=== PATIENT | male | born 1995 | race African-American/Black ===

== ENCOUNTER 2024-10-07 20:11 | Emergency (ER) | payer SELFPAY ==
[2024-10-07] MEDS ORDERED: IBUPROFEN 400 MG TAB ONE (20:51)
[2024-10-07] MEDS ORDERED: ACETAMINOPHEN 500 MG TAB ONE (20:51)
[2024-10-07] MEDS ORDERED: NA CHLORIDE 0.9% 2,000 ML ONE (20:51)
[2024-10-07 21:01] LABS: SARS-CoV-2 Antigen CONTROL BLUE LINE VIS/BG OK; SARS-CoV-2 Antigen Rapid Res Negative (Negative)
[2024-10-07 21:06] LABS: Absolute Lymphocytes (CBC) 0.6 K/uL (0.7-4.9); Absolute Monocytes 0.8 K/uL (0.1-1.3); Absolute Neutrophil 3.6 K/uL (1.8-8.0); Basophils % 0.8 % (0-1.3); Eosinophils % 0.5 % (0-4.4); Hematocrit 43.2 % (36.0-45.0); Hemoglobin 13.8 g/dL (12.0-15.0); Lymphocytes % 11.4 % (15.3-44.8); MCH 22.4 pg (27.0-35.0); MCHC 32.1 g/dL (32.0-36.0); MCV 69.9 fL (80-100); MPV 8.4 fL (7.6-11.3); Monocytes % 15.8 % (3.3-12.3); Neutrophils % 71.5 % (41.7-73.7); Nucleated Red Blood Cells % 0.2 % (0-0); Platelets 197 thou/uL (152-406); RBC Red Blood Cell Count 6.18 M/uL (4.33-5.43)
[2024-10-07 21:26] LABS: Albumin 3.8 g/dL (3.4-5.0); Albumin/Globulin Ratio 0.7 (1.1-1.8); Anion Gap 10.7 mEq/L (5.0-15.0); Globulin 5.3 g/dL (2.3-3.5); Potassium 3.7 mEq/L (3.5-5.1); Protein, Total 9.1 g/dL (6.4-8.2)
[2024-10-07 21:47] LABS: Blood Morphology Comment NOT SEEN (NOT SEEN); White Blood Cell Scan OK (OK)
[2024-10-07 21:56] LABS: Platelet Estimate ADEQ
--- NOTE | 2024-10-07 22:04 | ER ---
Nurse's Notes [facility] Name: John Zuñiga Age: 29 yrs Sex: Male : 1995 Arrival Date: 10/07/2024 Time: 20:11 Bed 14 Private MD: Diagnosis: Influenza A , Acute Febrile Illness, Elevated Liver Enzymes Presentation: 10/07 20:25 Chief complaint: Patient states: cough, congestion, fever, sore throat X1 day. lg3 Coronavirus screen: Client denies travel out of the [place] in the last 14 days. Client presents with at least one sign or symptom that may indicate coronavirus-19. Standard/surgical mask placed on the client. Ebola Screen: No symptoms or risks identified at this time. Initial Sepsis Screen: Does the patient meet any 2 criteria? Temp <36.0*C (96.8*F)) or > 38.3*C (100.9*F). HR > 90 bpm. Yes Does the patient have a suspected source of infection? No. Patient's initial sepsis screen is negative. Risk Assessment: Do you want to hurt yourself or someone else? Patient reports no desire to harm self or others. Onset of symptoms was October 06, 2024. 20:25 Method Of Arrival: Ambulatory lg3 20:25 Acuity: BHARAT 3 lg3 Triage Assessment: 20:26 General: Appears in no apparent distress. comfortable, Behavior is calm, cooperative. lg3 Pain: Complains of pain in head, throat. EENT: No deficits noted. Reports difficulty swallowing nasal congestion nasal discharge. Neuro: No deficits noted. Quevedo Agitation-Sedation Scale (RASS): 0 - Alert and Calm Level of Consciousness is awake, alert, obeys commands, Oriented to person, place, time, situation. Cardiovascular: No deficits noted. Denies chest pain, shortness of breath, Capillary refill < 3 seconds Clubbing of nail beds is absent JVD is absent Patient's skin is warm and dry. Respiratory: Reports cough that is Airway is patent Respiratory effort is even, unlabored, Respiratory pattern is regular, symmetrical, Breath sounds are clear bilaterally. GI: No deficits noted. No signs and/or symptoms were reported involving the gastrointestinal system. : No signs and/or symptoms were reported regarding the genitourinary system. Derm: No deficits noted. No signs and/or symptoms reported regarding the dermatologic system. Skin is intact, is healthy with good turgor, Skin is dry, Skin is normal, Skin temperature is warm. Musculoskeletal: No deficits noted. No signs and/or symptoms reported regarding the musculoskeletal system. Circulation, motion, and sensation intact. Range of motion: intact in all extremities. Historical: - Allergies: 20:26 No Known Allergies; lg3 - Home Meds: 20:26 None [Active]; lg3 - PMHx: 20:26 None; lg3 - PSHx: 20:26 None; lg3 - Immunization history:: Adult Immunizations up to date. - Infectious Disease History:: Denies. - Social history:: Smoking status: Patient denies any tobacco usage or history of. Patient/guardian denies using alcohol, street drugs. - Family history:: not pertinent. Screenin:28 [facility] ED Fall Risk Assessment (Adult) History of falling in the last 3 months, lg3 including since admission No falls in past 3 months (0 pts) Confusion or Disorientation No (0 pts) Intoxicated or Sedated No (0 pts) Impaired Gait No (0 pts) Mobility Assist Device Used No (0 pt) Altered Elimination No (0 pt) Score/Fall Risk Level 0 - 2 = Low Risk Oriented to surroundings, Maintained a safe environment, Educated pt \T\ family on fall prevention, incl call for assistance when getting out of bed, Assessed \T\ reinforced patient's understanding of fall precautions. Abuse screen: Denies threats or abuse. Denies injuries from another. Nutritional screening: No deficits noted. Tuberculosis screening: No symptoms or risk factors identified. Assessment: 20:28 General: see triage assessment. Cardiovascular: No deficits noted. Denies chest pain, lg3 shortness of breath, Heart tones S1 S2 present Capillary refill < 3 seconds Clubbing of nail beds is absent JVD is absent Patient's skin is warm and dry. Respiratory: Reports cough that is Airway is patent Respiratory effort is even, unlabored, Respiratory pattern is regular, symmetrical, Breath sounds are clear bilaterally. 22:17 Reassessment: Patient appears in no apparent distress at this time. Patient and/or jb4 family updated on plan of care and expected duration. Pain level reassessed. Patient is alert, oriented x 3, equal unlabored respirations, skin warm/dry/pink. Vital Signs: 20:25 BP 142 / 77; Pulse 121; Resp 17 S; Temp 102.7(O); Pulse Ox 98% on R/A; Weight 99.79 kg lg3 (R); Height 6 ft. 2 in. (R); 22:17 BP 133 / 83; Pulse 112; Resp 16; Temp 99.7; Pulse Ox 100% on R/A; jb4 20:25 Body Mass Index 28.25 (99.79 kg, 187.96 cm) lg3 Valerie Coma Score: 20:17 Eye Response: spontaneous(4). Motor Response: obeys commands(6). Verbal Response: sp4 oriented(5). Total: 15. ED Course: 20:15 Patient arrived in ED. gm2 20:17 Peter Sweeney MD is Attending Physician. sp4 20:26 Triage completed. lg3 20:26 Arm band placed on right wrist. lg3 20:28 Patient taken to lobby, ambulatory, steady gait. lg3 20:28 Patient has correct armband on for positive identification. lg3 20:28 COVID swab sent to lab. Flu and/or RSV swab sent to lab. Strep swab sent to lab. lg3 Patient maintains SpO2 saturation greater than 95% on room air. 21:02 CMP Sent. rv1 21:02 CBC with Diff Sent. rv1 22:35 Provided Education on: discharge instructions.. jb4 22:35 No provider procedures requiring assistance completed. IV discontinued, intact, jb4 bleeding controlled, No redness/swelling at site. Pressure dressing applied. Administered Medications: 20:57 Drug: Acetaminophen PO 1000 mg PO once Route: PO; ph 22:16 Follow up: Response: No adverse reaction; Marked relief of symptoms; Temperature is jb4 decreased 20:57 Drug: Ibuprofen PO 800 mg PO once Route: PO; ph 22:17 Follow up: Response: No adverse reaction; Marked relief of symptoms; Temperature is jb4 decreased 21:02 Drug: NS 0.9% IV 1000 ml IV at 1000 ml once; to be given as a bolus over 60 minutes ph Route: IV; Rate: 1000 ml; Site: right antecubital; 22:36 Follow up: Response: No adverse reaction; Marked relief of symptoms; IV Status: jb4 Completed infusion; IV Intake: 1000ml 21:02 Drug: NS 0.9% IV 1000 ml IV at 1 bolus Per protocol; to be given as a bolus over 60 ph minutes Route: IV; Rate: 1 bolus; Site: right antecubital; 22:36 Follow up: Response: No adverse reaction; Marked relief of symptoms; IV Status: jb4 Completed infusion; IV Intake: 1000ml 22:16 Not Given (Other Intervention Used): [id number] mg IVP once; over 15 mins jb4 22:16 Drug: diphenhydrAMINE IVP 25 mg IVP once Route: IVP; Site: right antecubital; jb4 22:36 Follow up: Response: No adverse reaction; Marked relief of symptoms; Pain is decreased jb4 22:16 Drug: metoCLOPramide IVP 10 mg IVP once; over 1 to 2 minutes Route: IVP; Site: right jb4 antecubital; 22:36 Follow up: Response: No adverse reaction; Marked relief of symptoms; Pain is decreased jb4 Intake: 22:36 IV: 1000ml; Total: 1000ml. jb4 22:36 IV: 1000ml; Total: 2000ml. jb4 Outcome: 22:04 Discharge ordered by . sp4 22:35 Discharged to home ambulatory, with family, jb4 22:35 Condition: stable 22:35 Discharge instructions given to patient, Instructed on discharge instructions, follow up and referral plans. medication usage, Demonstrated understanding of instructions, follow-up care, medications, Prescriptions given X 2, 22:36 Patient left the ED. jb4 Signatures: Maggi Jolly RN RN ph Bryson, James, RN RN jb4 Noreen Dawn RN RN 3 Seble Garcia 1 Peter Sweeney MD MD sp4 Meche Alcaraz 2
--- NOTE | 2024-10-07 22:04 | EDPHYS ---
Physician Documentation [facility] Name: John Zuñiga Age: 29 yrs Sex: Male : 1995 Arrival Date: 10/07/2024 Time: 20:11 Bed 14 Private MD: ED Physician Peter Sweeney HPI: 10/07 20:17 This 29 yrs old Black Male presents to ER via Unassigned with complaints of Cough, sp4 Congestion, Fever. 10/08 20:54 29-year-old Male presents with cough congestion and fever. . sp4 Historical: - Allergies: 10/07 20:26 No Known Allergies; lg3 - Home Meds: 20:26 None [Active]; lg3 - PMHx: 20:26 None; lg3 - PSHx: 20:26 None; lg3 - Immunization history:: Adult Immunizations up to date. - Infectious Disease History:: Denies. - Social history:: Smoking status: Patient denies any tobacco usage or history of. Patient/guardian denies using alcohol, street drugs. - Family history:: not pertinent. ROS: 20:17 Constitutional: Positive cough congestion and fever , positive body aches and headache sp4 20:17 All other systems are negative, Exam: 20:17 Constitutional: This is a well developed, well nourished patient who is awake, alert, sp4 and in no acute distress. Head/Face: Normocephalic, atraumatic. Eyes: Pupils equal round and reactive to light, extra-ocular motions intact. Lids and lashes normal. Conjunctiva and sclera are not injected. Cornea within normal limits. Periorbital areas with no swelling, redness, or edema. ENT: Nares patent. No nasal discharge, no septal abnormalities noted. Tympanic membranes are normal and external auditory canals are clear. Oropharynx with no redness, swelling, or masses, exudates, or evidence of obstruction, uvula midline. Mucous membranes moist. Neck: Trachea midline, no thyromegaly or masses palpated, and no cervical lymphadenopathy. Supple, full range of motion without nuchal rigidity, or vertebral point tenderness. Chest/axilla: Normal chest wall appearance and motion. Nontender with no deformity. No lesions are appreciated. Cardiovascular: Tachycardia. No gallops, murmurs, or rubs. Normal PMI, no JVD. No pulse deficits. Respiratory: Lungs have equal breath sounds bilaterally, clear to auscultation and percussion. No rales, rhonchi or wheezes noted. No increased work of breathing, no retractions or nasal flaring. Abdomen/GI: Soft, with normal bowel sounds. No distension or tympany. No guarding or rebound. No evidence of tenderness throughout. Back: No spinal tenderness. No costovertebral tenderness. Skin: Warm, dry with normal turgor. Normal color with no rashes, no lesions, and no evidence of cellulitis. MS/ Extremity: Pulses equal, no cyanosis. Neurovascular intact. Full, normal range of motion. Neuro: Awake and alert, GCS 15, oriented to person, place, time, and situation. Cranial nerves II-XII grossly intact. Motor strength 5/5 in all extremities. Sensory grossly intact. Psych: Awake, alert, with orientation to person, place and time. Behavior, mood, and affect are within normal limits Vital Signs: 20:25 BP 142 / 77; Pulse 121; Resp 17 S; Temp 102.7(O); Pulse Ox 98% on R/A; Weight 99.79 kg lg3 (R); Height 6 ft. 2 in. (R); 22:17 BP 133 / 83; Pulse 112; Resp 16; Temp 99.7; Pulse Ox 100% on R/A; jb4 20:25 Body Mass Index 28.25 (99.79 kg, 187.96 cm) lg3 Alpine Coma Score: 20:17 Eye Response: spontaneous(4). Motor Response: obeys commands(6). Verbal Response: sp4 oriented(5). Total: 15. MDM: 20:18 Medical Screening Exam initiated sp4 10/08 20:56 Differential Diagnosis: Obstructed Airway Bronchitis Influenza Upper Respiratory sp4 Infection Sinusitis Pharyngitis. Data reviewed: vital signs, nurses notes, old medical records, lab test result(s). ED course: Stable for discharge home, improved after fluids. 10/07 20:30 Order name: SARS RAPID; Complete Time: 21:35 lg3 10/07 20:30 Order name: Flu; Complete Time: 21:35 lg3 10/07 20:30 Order name: Strep; Complete Time: 21:35 lg3 10/07 20:34 Order name: CBC with Diff; Complete Time: 22:03 sp4 10/07 20:34 Order name: CMP; Complete Time: 21:35 sp4 10/07 21:06 Order name: Throat Culture EDMS 10/07 21:13 Order name: CBC Smear Scan; Complete Time: 22:03 EDMS 10/07 20:35 Order name: Saline Lock; Complete Time: 21:02 sp4 Administered Medications: 10/07 20:57 Drug: Acetaminophen PO 1000 mg PO once Route: PO; ph 22:16 Follow up: Response: No adverse reaction; Marked relief of symptoms; Temperature is jb4 decreased 20:57 Drug: Ibuprofen PO 800 mg PO once Route: PO; ph 22:17 Follow up: Response: No adverse reaction; Marked relief of symptoms; Temperature is jb4 decreased 21:02 Drug: NS 0.9% IV 1000 ml IV at 1000 ml once; to be given as a bolus over 60 minutes ph Route: IV; Rate: 1000 ml; Site: right antecubital; 22:36 Follow up: Response: No adverse reaction; Marked relief of symptoms; IV Status: jb4 Completed infusion; IV Intake: 1000ml 21:02 Drug: NS 0.9% IV 1000 ml IV at 1 bolus Per protocol; to be given as a bolus over 60 ph minutes Route: IV; Rate: 1 bolus; Site: right antecubital; 22:36 Follow up: Response: No adverse reaction; Marked relief of symptoms; IV Status: jb4 Completed infusion; IV Intake: 1000ml 22:16 Not Given (Other Intervention Used): [id number] mg IVP once; over 15 mins jb4 22:16 Drug: diphenhydrAMINE IVP 25 mg IVP once Route: IVP; Site: right antecubital; jb4 22:36 Follow up: Response: No adverse reaction; Marked relief of symptoms; Pain is decreased jb4 22:16 Drug: metoCLOPramide IVP 10 mg IVP once; over 1 to 2 minutes Route: IVP; Site: right jb4 antecubital; 22:36 Follow up: Response: No adverse reaction; Marked relief of symptoms; Pain is decreased jb4 Disposition: 10/08 20:56 Chart complete. sp4 Disposition Summary: 10/07/24 22:04 Discharge Ordered Problem: new sp4 Symptoms: have improved sp4 Condition: Stable sp4 Diagnosis - Influenza A , Acute Febrile Illness, Elevated Liver Enzymes sp4 Followup: sp4 - With: Private Physician - When: 10 - 14 days - Reason: Recheck today's complaints Discharge Instructions: - Discharge Summary Sheet sp4 - Influenza, Adult, [id number] sp4 Forms: - Work release form sp4 - Patient Portal Instructions sp4 Prescriptions: - Tamiflu 75 mg Oral capsule - take 1 tablet ORAL route every 12 hours for 5 days; 10 tablet; Refills: 0, sp4 Product Selection Permitted - ondansetron 8 mg Oral Tablet,disintegrating - take 1 tablet ORAL route every 8 hours PRN nausea; 30 tablet; Refills: 0, sp4 Product Selection Permitted Signatures: Dispatcher [employer] EDMaggi Silver RN RN Blu Elias RN RN jb4 Noreen Dawn RN RN lg3 Peter Sweeney MD MD sp4 Corrections: (The following items were deleted from the chart) 10/07 20:30 20:30 SARS-COV-2 Antigen Rapid+I.LAB.BRZ ordered. EDMS EDMS 20:30 20:30 Influenza Screen (A \T\ B)+BA.LAB.BRZ ordered. EDMS EDMS 20:30 20:30 Group A Streptococcus Rapid Sc+BA.LAB.BRZ ordered. EDMS EDMS 10/08 20:54 10/07 20:17 This 29 yrs old Black Female presents to ER via Unassigned with complaints sp4 of Cough, Congestion, Fever. sp4
[2024-10-07] MEDS ORDERED: DIPHENHYDRAMINE 50 MG/ML VIAL ONE (22:06)
[2024-10-07] MEDS ORDERED: METOCLOPRAMIDE 10 MG/2mL INJ ONE (22:07)
[2024-10-08 06:07] VITALS: BP 133/83; TEMP 99.7; O2SAT 100
== END 2024-10-07 22:36 | disposition home or self-care (01) ==
LOC: EDSEX 20:11 → ER 20:11
DX: J10.1 Influenza due to other identified influenza virus with other respiratory manifestations (principal); R74.01 Elevation of levels of liver transaminase levels; Z11.52 Encounter for screening for COVID-19
CPT/HCPCS: 36415; 80053; 85025; 87070; 87081; 87804; 87811; 96361; 96374; 96375; 99284; J1200; J2765; J7030